=== PATIENT | female | born 1985 | race Caucasian/White ===

== ENCOUNTER 2017-04-11 09:09 | Observation (INO) | payer OTHER ==
[2017-04-11] MEDS ORDERED: PREN1TAB80 PO (09:13)
[2017-04-11] MEDS ORDERED: FERR-89 PO (09:13)
[2017-04-11] MEDS ORDERED: FOLI1 PO (09:13)
[2017-04-11] MEDS ORDERED: RINGERS SOLUTION,LACTATED 1,000 ML IV ONE (09:45)
[2017-04-11 10:13] VITALS: BP 113/68
[2017-04-11] MEDS ORDERED: RINGERS SOLUTION,LACTATED 1,000 ML IV SCH (10:15)
== END 2017-04-11 11:45 | disposition home or self-care (01) ==
LOC: 4S 09:09
PROVIDERS: ADMIT Obstetrics & Gynecology; ATTEND Obstetrics & Gynecology
DX: O41.03X0 Oligohydramnios, third trimester, not applicable or unspecified (principal); O23.33 Infections of other parts of urinary tract in pregnancy, third trimester; Z3A.38 38 weeks gestation of pregnancy
CPT/HCPCS: 36415; 59025; 83036; 96360; 96361; G0378; J7120; 96365; 96366

== ENCOUNTER 2017-04-14 20:11 | Inpatient (IN) | payer OTHER ==
[~2017-04-14] VITALS: Ht 152.4 cm; Wt 65.8 kg
[~2017-04-14 20:11] MED LIST: FERR-89 PO; FOLI1 PO; PREN1TAB80 PO
[2017-04-14 20:43] VITALS: BP 119/73
[2017-04-14] MEDS ORDERED: OXYTOCIN 30 UNITS/LACT RINGERS 500 ML IV ONE (21:02)
[2017-04-14] MEDS ORDERED: RINGERS SOLUTION,LACTATED 1,000 ML IV ONE (21:02)
[2017-04-14] MEDS ORDERED: CITRIC ACID/SODIUM CITRATE 30 ML SOLUTION UDCUP PO PRN (21:15)
[2017-04-14] MEDS ORDERED: LIDOCAINE HCL/PF 1% 30 ML VIAL INJ PRN (21:15)
[2017-04-14] MEDS ORDERED: METOCLOPRAMIDE HCL 5 MG/ML 2 ML VIAL IVP PRN (21:15)
[2017-04-14 21:36] LABS: BASOPHILS # (AUTO) 0.01 K/uL (0.00-0.20); BASOPHILS % (AUTO) 0.1 % (0.0-2.0); EOSINOPHILS # (AUTO) 0.01 K/uL (0.00-0.70); EOSINOPHILS % (AUTO) 0.08 % (1.0-6.0); HEMATOCRIT 39.2 % (36-46); HEMOGLOBIN 13.1 g/dL (12.0-16.0); LYMPHOCYTES % (AUTO) 7.1 % (22.0-44.0); MEAN CORPUSCULAR HEMOGLOBIN 29.9 pg (26.0-34.0); MEAN CORPUSCULAR HGB CONC 33.5 G/dL (31.0-37.0); MEAN CORPUSCULAR VOLUME 89 fL (80-100); MONOCYTES # (AUTO) 0.5 K/uL (0.1-1.0); MONOCYTES % (AUTO) 3.8 % (2.0-9.0); NEUTROPHILS # (AUTO) 12.6 K/uL (1.8-7.7); RED BLOOD CELL COUNT(AUTO) 4.39 MIL/uL (4.00-5.20); RED CELL DISTRIBUTION WIDTH 14.5 % (11.5-14.5); WHITE BLOOD COUNT (AUTO) 14.2 K/uL (4.5-11.0)
[2017-04-14 21:42] LABS: RBC MORPHOLOGY COMMENT NORMAL RBC MORPH
[2017-04-14] MEDS: RINGERS SOLUTION,LACTATED 1,000 ML IV SCH (21:54)
[2017-04-14] MEDS ORDERED: AMPICILLIN SODIUM 2 GM/NS 100 ML IV ONE (22:00)
[2017-04-14] MEDS: FentaNYL CITRATE-PF 100 MCG/2 ML VIAL IVP PRN ×2 (22:03→22:08)
[2017-04-14] MEDS ORDERED: OXYTOCIN 30 UNITS/LACT RINGERS 500 ML IV PRN (23:00)
[2017-04-15] MEDS ORDERED: LIDOCAINE HCL/PF 2% 5 ML VIAL ONE (00:17)
[2017-04-15] MEDS ORDERED: FentaNYL/BUPIV 0.125%/NS/PF 200 ML ED ONE (00:18)
[2017-04-15] MEDS ORDERED: FentaNYL/BUPIV 0.125%/NS/PF 200 ML ED PRN (00:33)
[2017-04-15] MEDS: RINGERS SOLUTION,LACTATED 1,000 ML IV SCH ×3 (00:38→12:54)
[2017-04-15] MEDS ORDERED: DiphenhydrAMINE HCL 50 MG/ML VIAL IVP PRN (00:45)
[2017-04-15] MEDS ORDERED: PROMETHAZINE HCL 12.5 MG in SODIUM CHLORIDE 0.9% 50 ML IV PRN (00:45)
[2017-04-15] MEDS ORDERED: NALBUPHINE HCL 10 MG/ML VIAL IVP PRN (00:45)
[2017-04-15] MEDS ORDERED: ONDANSETRON HCL 4 MG/2 ML VIAL IVP PRN (00:45)
[2017-04-15] MEDS: AMPICILLIN SODIUM 1 GM/NS 50 ML IV SCH ×2 (01:55→05:47)
[2017-04-15] MEDS ORDERED: OXYTOCIN 30 UNITS/LACT RINGERS 500 ML IV ONE (08:52)
[2017-04-15] MEDS ORDERED: LANOLIN 7 GM OINTMENT TP PRN (09:00)
[2017-04-15] MEDS ORDERED: GLYCERIN/WITCH HAZEL LEAF 40 PADS JAR TP PRN (09:00)
[2017-04-15] MEDS ORDERED: LIDOCAINE HCL/PF 1% 30 ML VIAL INJ PRN (09:00)
[2017-04-15] MEDS ORDERED: METHYLERGONOVINE MALEATE 0.2 MG/ML VIAL IM ONE (09:00)
[2017-04-15] MEDS ORDERED: OxyCODONE HCL/ACETAMINOPHEN 5-325 MG TABLET PO PRN (09:00)
[2017-04-15] MEDS ORDERED: BENZOCAINE 20%/MENTHOL 56 GM SPRAY CANISTER TP PRN (09:00)
[2017-04-15] MEDS: IBUPROFEN 800 MG TABLET PO PRN ×2 (09:09→16:50)
[2017-04-15] MEDS: MAGNESIUM HYDROXIDE SUSPENSION 30 ML UDCUP PO PRN (20:19)
[2017-04-15] MEDS: OxyCODONE HCL/ACETAMINOPHEN 5-325 MG TABLET PO PRN (20:20)
[2017-04-16] MEDS: OxyCODONE HCL/ACETAMINOPHEN 5-325 MG TABLET PO PRN (05:44)
[2017-04-16 05:57] LABS: BASOPHILS % (AUTO) 0.1 % (0.0-2.0); EOSINOPHILS % (AUTO) 0.8 % (1.0-6.0); HEMATOCRIT 30.8 % (36-46); HEMOGLOBIN 10.5 g/dL (12.0-16.0); LYMPHOCYTES # (AUTO) 2.1 K/uL (1.0-4.8); LYMPHOCYTES % (AUTO) 15.6 % (22.0-44.0); MEAN CORPUSCULAR HEMOGLOBIN 30.5 pg (26.0-34.0); MEAN CORPUSCULAR HGB CONC 34.1 G/dL (31.0-37.0); MEAN CORPUSCULAR VOLUME 89 fL (80-100); MONOCYTES % (AUTO) 7.4 % (2.0-9.0); NEUTROPHILS # (AUTO) 10.3 K/uL (1.8-7.7); NEUTROPHILS % (AUTO) 76.1 % (40.0-70.0); RED BLOOD CELL COUNT(AUTO) 3.45 MIL/uL (4.00-5.20); RED CELL DISTRIBUTION WIDTH 14.6 % (11.5-14.5); WHITE BLOOD COUNT (AUTO) 13.6 K/uL (4.5-11.0)
[2017-04-16] MEDS: MAGNESIUM HYDROXIDE SUSPENSION 30 ML UDCUP PO PRN (09:11)
[2017-04-16] MEDS ORDERED: IBUP-2070 PO (09:31)
[2017-04-16] MEDS ORDERED: DSS100 PO (09:32)
[2017-04-16] MEDS ORDERED: FERR-89 PO (09:34)
== END 2017-04-16 10:30 | disposition home or self-care (01) | DRG 775 ==
LOC: OBSVTOIN 20:11 → 4S 20:11
PROVIDERS: ADMIT Obstetrics & Gynecology; ATTEND Obstetrics & Gynecology
PROC: 10D07Z6 Extraction of Products of Conception, Vacuum, Via Natural or Artificial Opening (ICD-10-PCS; principal; 2017-04-15)
PROC: 0KQM0ZZ Repair Perineum Muscle, Open Approach (ICD-10-PCS; 2017-04-15)
PROC: 3E0R3CZ (ICD-10-PCS; 2017-04-15)
PROC: 00HU33Z Insertion of Infusion Device into Spinal Canal, Percutaneous Approach (ICD-10-PCS; 2017-04-15)
DX: O77.0 Labor and delivery complicated by meconium in amniotic fluid (principal); O70.1 Second degree perineal laceration during delivery; Z37.0 Single live birth; Z3A.39 39 weeks gestation of pregnancy
CPT/HCPCS: 86850; 86900; 86901; J0290; J2210; J2590; J3010; J3490; J7120